=== PATIENT | female | born 1950 | race Caucasian/White ===

== ENCOUNTER 2018-05-28 14:17 | Inpatient (IN) | payer MEDICARE, MEDICAID ==
--- NOTE | 2018-05-28 14:31 | ED Physician Chart ---
ED Chief Complaint/HPI - Patient Information Date Seen:: 05/28/18 Time Seen:: 14:20 Chief Complaint:: Agitation History of Present Illness:: onset x 2 days of hallucinations and agitation; no report of trauma, H/As, neck pain, C/P, SOB, Abd. Pain, SIs, A/N/V/D/C, fever, chills, or urinary s/s Historian:: Patient, EMS Review:: Nurse's Note Reviewed, Old Chart Reviewed, EMS run form Reviewed ED Review of Systems - Review of Systems General/Constitutional: No fever, No chills, No weight loss, No weakness, No diaphoresis, No edema, No loss of appetite Skin: No skin lesions, No rash, No bruising Head: No headache, No light-headedness Eyes: No loss of vision, No pain, No diplopia ENT: No earache, No nasal drainage, No sore throat, No tinnitus Neck: No neck pain, No swelling, No thyromegaly, No stiffness, No mass noted Cardio Vascular: No chest pain, No palpitations, No PND, No orthopnea, No edema Pulmonary: No SOB, No cough, No sputum, No wheezing GI: No nausea, No vomiting, No diarrhea, No pain, No melena, No hematochezia, No constipation, No hematemesis G/U: No dysuria, No frequency, No hematuria, No nacturia Medicaid Analyst: No vaginal discharge, No abnormal vaginal bleed, No contraction Musculoskeletal: No bone or joint pain, No back pain, No muscle pain Endocrine: No polyuria, No polydipsia Psychiatric: Prior psych history, No depression, Anxiety, No suicidal ideation, No homicidal ideation, Auditory hallucination, No visual hallucination Hematopoietic: No bruising, No lymphadenopathy Allergic/Immuno: No urticaria, No angioedema Neurological: No syncope, No focal symptoms, No weakness, No paresthesia, No headache, No seizure, No dizziness, Confusion, No vertigo ED Past Medical History - Past Medical History Obtainable: Yes Past Medical History: HTN, PUD/GERD, Dementia Family History: HTN Social History: Non Smoker, No Alcohol, No Drug Use, Single, Care Facility Surgical History: Pacemaker Psychiatricy History: Schizophrenia, Dementia Medication: Reviewed Family Medical History - Family Member Mother History Unknown: Yes ED Physical Exam - Physical Examination General/Constitutional: Awake, Well-developed, well-nourished, Alert, No distress, GCS 15, Non-toxic appearing, Ambulatory Head: Atraumatic Eyes: Lids, conjuctiva normal, PERRL, EOMI Skin: Nl inspection, No rash, No skin lesions, No ecchymosis, Well hydrated, No lymphadenopathy ENMT: External ears, nose nl, TM canals nl, Nasal exam nl, Lips, teeth, gums nl , Oropharynx nl, Tonsils nl Neck: Nontender, Full ROM w/o pain, No JVD, No nuchal rigidity, No bruit, No mass, No stridor Respiratory: Nl effort/Exclusion, Clear to Auscultation, No Wheeze/Rhonchi/Rales Cardio Vascular: No murmur, gallop, rubs, NL S1 S2, Carotid/Femoral/Distal pulses equal bilaterally Other Cardio Vascular comments:: Irregular Irregular Rhythm GI: No tenderness/rebounding/guarding, No organomegaly, No hernia, Normal BS's, Nondistended, No mass/bruits, No McBurney tenderness : No CVA tenderness Extremities: No tenderness or effusion, Full ROM, normal strength in all extremities, No edema, Normal digits & nails Neuro/Psych: Alert/oriented, DTR's symmetric, Normal sensory exam, Normal motor strength, Judgement/insight normal, Mood normal, Normal gait, No focal deficits Other Neuro/Psych comments:: + Psychomotor Agitation; no SIs; Mood/Affect: Labile Misc: Normal back, No paraspinal tenderness ED Labs/Radiology/EKG Results - Lab Results Comments:: Reviewed - EKG Interpretations EKG Time:: 14:24 Rate & Rhythm: 80; Atrial Fibrillation Comments:: non-specific st-t changes ED Septic Shock - . Is Septic Shock (SBP<90, OR Lactate>4 mmol\L) present?: No ED Reassessment (Disposition) - Reassessment Reassessment Condition:: Improved - Diagnosis Diagnosis:: Atrial Fibrillation; Schizophrenia; Medical Clearance; Agitation; Bipolar Disorder; Hallucinations - Aftercare/Follow up Instructions Aftercare/Follow-Up Instructions:: Counseled pt regarding lab results/diagnosis & need follow up, Counseled pt & family regarding lab results/diagnosis & need follow up - Patient Disposition Discharge/Transfer:: Acute Care w/in this hosp Admitted to:: [facility] Condition at Disposition:: Stable, Improved
[2018-05-28 14:46] LABS: % BASOPHILS 0.5 % (0.0-2.0); % EOSINOPHILS 3.2 % (0.0-5.0); % LYMPHOCYTES 18.9 % (20.0-50.0); % MONOCYTES 7.1 % (2.0-10.0); % NEUTROPHILS 70.3 % (40.0-80.0); EOSINOPHILE ABSOLUTE 0.2 Th/cmm (0.1-0.4); LYMPHOCYTE ABSOLUTE 1.2 Th/cmm (1.5-3.0); MEAN CELL VOLUME 89.2 fl (81-100); MEAN CORPUSCULAR HEMOGLOBIN 29.7 pg (27.0-31.0); MEAN CORPUSCULAR HGB CONC 33.3 pg (28.0-36.0); MEAN PLATELET VOLUME 8.8 fl; MONOCYTE ABSOLUTE 0.4 Th/cmm (0.3-1.0); NEUTROPHILE ABSOLUTE 4.5 Th/cmm (1.8-8.0); PLATELET COUNT 226 Th/cmm (150-400); RED BLOOD COUNT 4.37 Mil/cmm (3.80-5.20); RED CELL DISTRIBUTION WIDTH 14.9 % (11.5-20.0); WHITE BLOOD COUNT 6.3 Th/cmm (4.8-10.8)
[2018-05-28 15:00] LABS: ACETAMINOPHEN < 10.0 ug/mL (10.0-30.0); ALB/GLOB RATIO 0.9 (1.0-1.8); ALBUMIN 3.2 gm/dL (3.7-5.3); ALKALINE PHOSPHATASE 59 U/L (34-104); ANION GAP 8.4 (7.0-16.0); BILIRUBIN,TOTAL 0.5 mg/dL (0.3-1.0); BUN - UREA NITROGEN 18 mg/dL (7-25); CALCIUM SERUM 8.8 mg/dL (8.6-10.3); CARBON DIOXIDE 26.6 mEq/L (21.0-31.0); CHLORIDE 106 mEq/L (98-107); CHOLESTEROL 133 mg/dL (<200); CREATININE - SERUM 0.7 mg/dL (0.6-1.2); GFR AFRICAN-AMERICAN > 60.0 ml/min (>90); GFR NON AFRICAN-AMERICAN > 60.0 ml/min; GLUCOSE 103 mg/dL (70-105); HDL -HIGH DENSITY LIPOPROTEIN 39 mg/dL (23-92); SALICYLATES (ASPIRIN) < 25.0 mg/L (30.0-100.0); SGOT 12 U/L (13-39); SGPT/ALT 9 U/L (7-52); SODIUM SERUM 137 mEq/L (136-145); TOTAL PROTEIN,SERUM 6.6 gm/dL (6.0-8.3); TRIGLYCERIDES 148 mg/dL (<150)
[2018-05-28 16:50] VITALS: BP 146/84
[2018-05-28] MEDS ORDERED: Maalox 30 mL Cup PO PRN (16:50)
[2018-05-28] MEDS ORDERED: Magnesium Hydroxide (MOM) 30 mL UDC PO PRN (16:50)
[2018-05-28 21:03] LABS: A1C % 6.5 % (4.0-6.0)
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
[2018-05-29] MEDS: Multivitamin Tab PO SCH (08:51)
--- NOTE | 2018-05-29 09:02 | History and Physical ---
History of Present Illness - HPI Chief Complaint: Increased in agitation HPI: Patient was send from SNF for evaluation for 2 days of increased in agitation. Vital Signs: Last Vital Signs Temp 97.3 F 05/29/18 06:30 Pulse 63 05/29/18 08:50 Resp 18 05/29/18 06:30 BP 109/65 05/29/18 06:30 Pulse Ox 97 05/29/18 06:30 Past Medical History Cardiovascular: Report: CAD, HTN Pulmonary: Report: No Pertinent Hx ENTERPRISE ENGINEER: Report: Dementia GI: Report: GERD Psych: Report: Psychosis, Schizophrenia Musculoskeletal: Report: Weakness Rheumatologic: Report: No pertinent Hx Infectious Disease: Report: No Pertinent Hx Renal/: Report: No Pertinent Hx Endocrine: Report: No Pertinent Hx Dermatology: Report: Other (Dermatophytosis) - Past Surgical History Past Surgical History: Other (Pacemaker placement) Family Medical History - Family Member Mother History Unknown: Yes Social History Smoke: No Alcohol: None Drugs: None Lives: Snf Domestic Violence: Negative - Medications Home Medications: Home Medication Medication Instructions Recorded Type Amiodarone [Cordarone] 100 mg PO DAILY 05/28/18 History Clonazepam [Klonopin] 1.5 mg PO HS 05/28/18 History Cyclosporine [Restasis] 1 drop EACH EYE BID 05/28/18 History Dabigatran Etexilate Mesylate 150 mg BID 05/28/18 History [Pradaxa] Digoxin [Lanoxin] 0.125 mg PO DAILY 05/28/18 History Docusate Sodium 100 mg PO DAILY 05/28/18 History Multivit with Iron-Minerals 1 tab PO DAILY 05/28/18 History [Compete] Tramadol HCl [Ultram] 50 mg PO BID 05/28/18 History Trazodone HCl 100 mg PO HS 05/28/18 History - Allergies Allergies/Adverse Reactions: Allergies Allergy/AdvReac Type Severity Reaction Status Date / Time lithium Allergy Verified 05/28/18 14:57 Review of Systems - Review of Systems Constitutional: Report: Weakness Eyes: Report: No Significant ENT: Report: No Significant Respiratory: Report: No Significant Cardiovascular: Report: No Significant Gastrointestinal: Report: No Significant Genitourinary: Report: No Significant Musculoskeletal: Report: No Significant Skin: Report: No Significant Neurological: Report: No Significant Physical Exam - Physical Exam HEENT: Report: Ears Nose Throat within normal limits Neck: Report: Within normal limits Cardiovascular Systems: Report: Regular, Rate and Rhythm Respiratory: Report: Breath Sounds are within normal limits Abdomen: Report: Non-tender to palpation Back: Report: Inspection of back is within normal limits. Skin: Report: Other (Skin of lower extremities is dry, toe nails are yellow) Neuro/Psych: Report: Disoriented to name time or place - Lab Results All Lab Results last 24 hours: Laboratory Results - last 24 hr 05/28/18 05/28/18 05/28/18 14:37 14:37 14:37 WBC 6.3 RBC 4.37 Hgb 13.0 Hct 39.0 L MCV 89.2 MCH 29.7 MCHC Differential 33.3 RDW 14.9 Plt Count 226 MPV 8.8 Neutrophils % 70.3 Lymphocytes % 18.9 L Monocytes % 7.1 Eosinophils % 3.2 Basophils % 0.5 Sodium 137 Potassium 4.0 Chloride 106 Carbon Dioxide 26.6 Anion Gap 8.4 BUN 18 Creatinine 0.7 Est GFR ( Amer) > 60.0 Est GFR (Non-Af Amer) > 60.0 BUN/Creatinine Ratio 25.7 Glucose 103 Hemoglobin A1c % 6.5 H Calcium 8.8 Total Bilirubin 0.5 AST 12 L ALT 9 Alkaline Phosphatase 59 Troponin I Total Protein 6.6 Albumin 3.2 L Globulin 3.4 Albumin/Globulin Ratio 0.9 L Triglycerides 148 Cholesterol 133 LDL Cholesterol Direct 76 HDL Cholesterol 39 TSH Salicylates < 25.0 L Acetaminophen < 10.0 L Ethyl Alcohol < 10 05/28/18 05/28/18 14:37 14:37 WBC RBC Hgb Hct MCV MCH MCHC Differential RDW Plt Count MPV Neutrophils % Lymphocytes % Monocytes % Eosinophils % Basophils % Sodium Potassium Chloride Carbon Dioxide Anion Gap BUN Creatinine Est GFR ( Amer) Est GFR (Non-Af Amer) BUN/Creatinine Ratio Glucose Hemoglobin A1c % Calcium Total Bilirubin AST ALT Alkaline Phosphatase Troponin I 0.01 Total Protein Albumin Globulin Albumin/Globulin Ratio Triglycerides Cholesterol LDL Cholesterol Direct HDL Cholesterol TSH 3.05 Salicylates Acetaminophen Ethyl Alcohol - Assessment Assessment: Patient is awake, alert, confused, not oriented. Dx: Increased in agitation, Schizophrenia, Dementia, HTN, A-Fib, Pacemaker in placement. - Plan Plan: Patient is follow by Psychiatry, continue with SNF meds. Will continue to monitor.
--- NOTE | 2018-05-29 11:31 | Progress Notes ---
DATE: 05/29/2018 SUBJECTIVE: Staff was spoken to. The patient is interviewed. Mood is noted to be irritable. Affect is constricted. Insight and judgment are noted to be still impaired. Impulse control is noted to poor. Coping skills are also noted to be very poor. The patient has been getting easily frustrated. The patient is still responding to internal stimuli. The patient is currently on Seroquel 12.5 mg at bedtime and has been able to tolerate the medications. No side effects to the medications are noted. ASSESSMENT: The patient is still irritable, angry and impulsive. PLAN: To continue the patient with supportive therapy and followup. JOB# [id number]
[2018-05-30] MEDS: Multivitamin Tab PO SCH (08:42)
--- NOTE | 2018-05-30 09:10 | General Progress Note ---
Subjective - Review of Systems Service Date: 05/30/18 Subjective: Patient is confused Objective - Results Result Diagrams: 05/28/18 14:37 05/28/18 14:37 Recent Labs: Laboratory Last Values WBC 6.3 Th/cmm (4.8-10.8) 05/28/18 14:37 RBC 4.37 Mil/cmm (3.80-5.20) 05/28/18 14:37 Hgb 13.0 gm/dL (12-16) 05/28/18 14:37 Hct 39.0 % (41.0-60) L 05/28/18 14:37 MCV 89.2 fl (81-100) 05/28/18 14:37 MCH 29.7 pg (27.0-31.0) 05/28/18 14:37 MCHC Differential 33.3 pg (28.0-36.0) 05/28/18 14:37 RDW 14.9 % (11.5-20.0) 05/28/18 14:37 Plt Count 226 Th/cmm (150-400) 05/28/18 14:37 MPV 8.8 fl 05/28/18 14:37 Neutrophils % 70.3 % (40.0-80.0) 05/28/18 14:37 Lymphocytes % 18.9 % (20.0-50.0) L 05/28/18 14:37 Monocytes % 7.1 % (2.0-10.0) 05/28/18 14:37 Eosinophils % 3.2 % (0.0-5.0) 05/28/18 14:37 Basophils % 0.5 % (0.0-2.0) 05/28/18 14:37 Sodium 137 mEq/L (136-145) 05/28/18 14:37 Potassium 4.0 mEq/L (3.5-5.1) 05/28/18 14:37 Chloride 106 mEq/L (98-107) 05/28/18 14:37 Carbon Dioxide 26.6 mEq/L (21.0-31.0) 05/28/18 14:37 Anion Gap 8.4 (7.0-16.0) 05/28/18 14:37 BUN 18 mg/dL (7-25) 05/28/18 14:37 Creatinine 0.7 mg/dL (0.6-1.2) 05/28/18 14:37 Est GFR ( Amer) > 60.0 ml/min (>90) 05/28/18 14:37 Est GFR (Non-Af Amer) > 60.0 ml/min 05/28/18 14:37 BUN/Creatinine Ratio 25.7 05/28/18 14:37 Glucose 103 mg/dL (70-105) 05/28/18 14:37 Hemoglobin A1c % 6.5 % (4.0-6.0) H 05/28/18 14:37 Calcium 8.8 mg/dL (8.6-10.3) 05/28/18 14:37 Total Bilirubin 0.5 mg/dL (0.3-1.0) 05/28/18 14:37 AST 12 U/L (13-39) L 05/28/18 14:37 ALT 9 U/L (7-52) 05/28/18 14:37 Alkaline Phosphatase 59 U/L (34-104) 05/28/18 14:37 Troponin I 0.01 ng/mL (0.01-0.05) 05/28/18 14:37 Total Protein 6.6 gm/dL (6.0-8.3) 05/28/18 14:37 Albumin 3.2 gm/dL (3.7-5.3) L 05/28/18 14:37 Globulin 3.4 gm/dL 05/28/18 14:37 Albumin/Globulin Ratio 0.9 (1.0-1.8) L 05/28/18 14:37 Triglycerides 148 mg/dL (<150) 05/28/18 14:37 Cholesterol 133 mg/dL (<200) 05/28/18 14:37 LDL Cholesterol Direct 76 mg/dL (75-193) 05/28/18 14:37 HDL Cholesterol 39 mg/dL (23-92) 05/28/18 14:37 TSH 3.05 uIU/ml (0.34-5.60) 05/28/18 14:37 Salicylates < 25.0 mg/L (30.0-100.0) L 05/28/18 14:37 Acetaminophen < 10.0 ug/mL (10.0-30.0) L 05/28/18 14:37 Ethyl Alcohol < 10 mg/dL (0-10) 05/28/18 14:37 RPR NONREACTIVE (NONREACTIVE) 05/28/18 14:37 - Physical Exam Vitals and I&O: Vital Signs Temp 97.1 F 05/30/18 06:33 Pulse 68 05/30/18 08:42 Resp 18 05/30/18 06:33 BP 112/64 05/30/18 06:33 Pulse Ox 95 05/30/18 06:33 Intake & Output 05/29/18 05/30/18 05/30/18 18:59 06:59 18:59 Intake Total 800 120 Balance 800 120 Intake: Oral 800 120 Other: # Voids 4 3 # Bowel Movements 0 Active Medications: Current Medications Acetaminophen (Tylenol) 650 mg PO Q4HR PRN PRN Reason: Mild Pain / Temp above 100 Stop: 07/27/18 16:49 Al Hydrox/Mg Hydrox/Simethicone (Maalox) 30 ml PO Q4HR PRN PRN Reason: GI DISTRESS Stop: 07/27/18 16:49 Clonazepam (Klonopin) 1 mg PO HS HOWARD; Protocol Stop: 07/28/18 20:59 Last Admin: 05/29/18 20:56 Dose: 1 mg Digoxin (Lanoxin) 0.125 mg PO DAILY HOWARD Stop: 07/28/18 08:59 Last Admin: 05/30/18 08:42 Dose: 0.125 mg Lorazepam (Ativan) 0.5 mg PO Q4HR PRN; Protocol PRN Reason: Anxiety Stop: 07/27/18 16:58 Last Admin: 05/29/18 14:37 Dose: 0.5 mg Magnesium Hydroxide (Milk Of Magnesia) 30 ml PO HS PRN PRN Reason: Constipation Multivitamins/Vitamin C (Theragran) 1 tab PO DAILY HOWARD Stop: 07/28/18 08:59 Last Admin: 05/30/18 08:42 Dose: 1 tab Quetiapine Fumarate (Seroquel) 12.5 mg PO HS HOWARD; Protocol Stop: 07/27/18 20:59 Last Admin: 05/29/18 20:56 Dose: 12.5 mg Tramadol HCl (Ultram) 50 mg PO BID HOWARD Stop: 07/28/18 08:59 Last Admin: 05/30/18 08:42 Dose: 50 mg Zolpidem Tartrate (Ambien) 5 mg PO HS PRN PRN Reason: Insomnia Stop: 07/27/18 16:49 General: Alert, Other (Confused) HEENT: Atraumatic Neck: Supple Cardiovascular: Regular rate Lungs: Clear to auscultation Abdomen: Bowel sounds, Soft Extremities: Other (No edema) Neurological: Other (Unstable gait) Skin: Other (Warm and dry) Psych/Mental Status: Other (Confused not oriented) Assessment/Plan - Assessment Assessment: Patient is awake, alert, confused, not oriented. Dx: Increased in agitation, Schizophrenia, Dementia, HTN, A-Fib, Pacemaker in placement. - Plan Plan: Patient is follow by Psychiatry, continue with SNF meds. Will continue to monitor.
--- NOTE | 2018-05-30 21:57 | Progress Notes ---
DATE: 05/30/2018 SUBJECTIVE: Staff was spoken to. The patient is interviewed. Mood is noted to be irritable. Affect is constricted. The patient is extremely anxious. The patient has been having difficult time to cope with the stress. The patient's coping skills are noted to be extremely poor. No side effects to the medications are noted. The patient is mentioning that she is feeling very tired and hence it is decided to decrease the dose on the lorazepam to 0.5 mg at bedtime and follow the patient with supportive therapy. The patient is also on 12.5 mg of the Seroquel. The patient's sleep is noted to be improving. Appetite is noted to be fair, but the patient continues to be agitated, irritable and paranoid. PLAN: To continue the patient with the current medications and followup. [facility]# [id number]
--- NOTE | 2018-05-31 07:48 | General Progress Note ---
Subjective - Review of Systems Service Date: 05/31/18 Subjective: Patient is confused Objective - Results Result Diagrams: 05/28/18 14:37 05/28/18 14:37 Recent Labs: Laboratory Last Values WBC 6.3 Th/cmm (4.8-10.8) 05/28/18 14:37 RBC 4.37 Mil/cmm (3.80-5.20) 05/28/18 14:37 Hgb 13.0 gm/dL (12-16) 05/28/18 14:37 Hct 39.0 % (41.0-60) L 05/28/18 14:37 MCV 89.2 fl (81-100) 05/28/18 14:37 MCH 29.7 pg (27.0-31.0) 05/28/18 14:37 MCHC Differential 33.3 pg (28.0-36.0) 05/28/18 14:37 RDW 14.9 % (11.5-20.0) 05/28/18 14:37 Plt Count 226 Th/cmm (150-400) 05/28/18 14:37 MPV 8.8 fl 05/28/18 14:37 Neutrophils % 70.3 % (40.0-80.0) 05/28/18 14:37 Lymphocytes % 18.9 % (20.0-50.0) L 05/28/18 14:37 Monocytes % 7.1 % (2.0-10.0) 05/28/18 14:37 Eosinophils % 3.2 % (0.0-5.0) 05/28/18 14:37 Basophils % 0.5 % (0.0-2.0) 05/28/18 14:37 Sodium 137 mEq/L (136-145) 05/28/18 14:37 Potassium 4.0 mEq/L (3.5-5.1) 05/28/18 14:37 Chloride 106 mEq/L (98-107) 05/28/18 14:37 Carbon Dioxide 26.6 mEq/L (21.0-31.0) 05/28/18 14:37 Anion Gap 8.4 (7.0-16.0) 05/28/18 14:37 BUN 18 mg/dL (7-25) 05/28/18 14:37 Creatinine 0.7 mg/dL (0.6-1.2) 05/28/18 14:37 Est GFR ( Amer) > 60.0 ml/min (>90) 05/28/18 14:37 Est GFR (Non-Af Amer) > 60.0 ml/min 05/28/18 14:37 BUN/Creatinine Ratio 25.7 05/28/18 14:37 Glucose 103 mg/dL (70-105) 05/28/18 14:37 Hemoglobin A1c % 6.5 % (4.0-6.0) H 05/28/18 14:37 Calcium 8.8 mg/dL (8.6-10.3) 05/28/18 14:37 Total Bilirubin 0.5 mg/dL (0.3-1.0) 05/28/18 14:37 AST 12 U/L (13-39) L 05/28/18 14:37 ALT 9 U/L (7-52) 05/28/18 14:37 Alkaline Phosphatase 59 U/L (34-104) 05/28/18 14:37 Troponin I 0.01 ng/mL (0.01-0.05) 05/28/18 14:37 Total Protein 6.6 gm/dL (6.0-8.3) 05/28/18 14:37 Albumin 3.2 gm/dL (3.7-5.3) L 05/28/18 14:37 Globulin 3.4 gm/dL 05/28/18 14:37 Albumin/Globulin Ratio 0.9 (1.0-1.8) L 05/28/18 14:37 Triglycerides 148 mg/dL (<150) 05/28/18 14:37 Cholesterol 133 mg/dL (<200) 05/28/18 14:37 LDL Cholesterol Direct 76 mg/dL (75-193) 05/28/18 14:37 HDL Cholesterol 39 mg/dL (23-92) 05/28/18 14:37 TSH 3.05 uIU/ml (0.34-5.60) 05/28/18 14:37 Salicylates < 25.0 mg/L (30.0-100.0) L 05/28/18 14:37 Acetaminophen < 10.0 ug/mL (10.0-30.0) L 05/28/18 14:37 Ethyl Alcohol < 10 mg/dL (0-10) 05/28/18 14:37 RPR NONREACTIVE (NONREACTIVE) 05/28/18 14:37 - Physical Exam Vitals and I&O: Vital Signs Temp 97 F 05/31/18 07:21 Pulse 68 05/31/18 07:21 Resp 16 05/31/18 07:21 BP 101/71 05/31/18 07:21 Pulse Ox 94 05/31/18 07:21 Intake & Output 05/30/18 05/31/18 05/31/18 18:59 06:59 18:59 Intake Total 1400 Balance 1400 Intake: Oral 1400 Other: # Voids 4 # Bowel Movements 1 Active Medications: Current Medications Acetaminophen (Tylenol) 650 mg PO Q4HR PRN PRN Reason: Mild Pain / Temp above 100 Stop: 07/27/18 16:49 Al Hydrox/Mg Hydrox/Simethicone (Maalox) 30 ml PO Q4HR PRN PRN Reason: GI DISTRESS Stop: 07/27/18 16:49 Clonazepam (Klonopin) 0.5 mg PO HS HOWARD; Protocol Stop: 07/29/18 20:59 Last Admin: 05/30/18 21:16 Dose: 0.5 mg Digoxin (Lanoxin) 0.125 mg PO DAILY HOWARD Stop: 07/28/18 08:59 Last Admin: 05/30/18 08:42 Dose: 0.125 mg Lorazepam (Ativan) 0.5 mg PO Q4HR PRN; Protocol PRN Reason: Anxiety Stop: 07/27/18 16:58 Last Admin: 05/30/18 23:43 Dose: 0.5 mg Magnesium Hydroxide (Milk Of Magnesia) 30 ml PO HS PRN PRN Reason: Constipation Multivitamins/Vitamin C (Theragran) 1 tab PO DAILY HOWARD Stop: 07/28/18 08:59 Last Admin: 05/30/18 08:42 Dose: 1 tab Quetiapine Fumarate (Seroquel) 12.5 mg PO HS HOWARD; Protocol Stop: 07/27/18 20:59 Last Admin: 05/30/18 21:16 Dose: 12.5 mg Tramadol HCl (Ultram) 50 mg PO BID HOWARD Stop: 07/28/18 08:59 Last Admin: 05/30/18 17:25 Dose: 50 mg Zolpidem Tartrate (Ambien) 5 mg PO HS PRN PRN Reason: Insomnia Stop: 07/27/18 16:49 Last Admin: 05/30/18 21:17 Dose: 5 mg General: Alert, Other (Confused) HEENT: Atraumatic Neck: Supple Cardiovascular: Regular rate Lungs: Clear to auscultation Abdomen: Bowel sounds, Soft Extremities: Other (No edema) Neurological: Other (Unstable gait) Skin: Other (Warm and dry) Psych/Mental Status: Other (Confused not oriented) Assessment/Plan - Assessment Assessment: Patient is awake, alert, confused, not oriented. Dx: Increased in agitation, Schizophrenia, Dementia, HTN, A-Fib, Pacemaker in placement. - Plan Plan: Patient is follow by Psychiatry, continue with SNF meds. Will continue to monitor.
[2018-05-31] MEDS: Multivitamin Tab PO SCH (08:53)
--- NOTE | 2018-05-31 13:24 | Progress Notes ---
DATE: 05/31/2018 SUBJECTIVE: Staff was spoken to. The patient is interviewed. Mood is noted to be irritable. Affect is constricted. The patient's insight and judgment are noted to be impaired. The patient has been noted to be very sedated. The patient has been given a dose of Ativan, Ambien, and the Seroquel last night and the patient is having difficult time to wake up and hence it is decided to discontinue the Klonopin and then make the lorazepam only 0.5 mg twice a day and discontinue the Ambien and follow the patient with the supportive therapy. The patient's vital signs; however, are noted to be stable. JOB# [id number]
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
[2018-06-01] MEDS: Multivitamin Tab PO SCH (08:37)
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
[2018-06-02] MEDS: Multivitamin Tab PO SCH (08:13)
--- NOTE | 2018-06-02 20:48 | Progress Notes ---
DATE: 06/02/2018 SUBJECTIVE: Staff was spoken to. The patient is interviewed. Mood is noted to be irritable. Affect is constricted. The patient continues to be very paranoid. The patient is screaming and yelling and has been accusing the people and been trying to hurt her and harm her. The patient has no insight into her illness. The patient is currently on quetiapine 25 mg at bedtime and then we have started the valproic acid 125 mg for her mood swings. The patient is going to be followed up with the supportive therapy, encouraged the patient and has been encouraged to verbalize the concerns rather than to act out. JOB# [id number]
--- NOTE | 2018-06-03 09:02 | General Progress Note ---
Subjective - Review of Systems Service Date: 06/03/18 Subjective: Patient is confused Objective - Results Result Diagrams: 05/28/18 14:37 05/28/18 14:37 Recent Labs: Laboratory Last Values WBC 6.3 Th/cmm (4.8-10.8) 05/28/18 14:37 RBC 4.37 Mil/cmm (3.80-5.20) 05/28/18 14:37 Hgb 13.0 gm/dL (12-16) 05/28/18 14:37 Hct 39.0 % (41.0-60) L 05/28/18 14:37 MCV 89.2 fl (81-100) 05/28/18 14:37 MCH 29.7 pg (27.0-31.0) 05/28/18 14:37 MCHC Differential 33.3 pg (28.0-36.0) 05/28/18 14:37 RDW 14.9 % (11.5-20.0) 05/28/18 14:37 Plt Count 226 Th/cmm (150-400) 05/28/18 14:37 MPV 8.8 fl 05/28/18 14:37 Neutrophils % 70.3 % (40.0-80.0) 05/28/18 14:37 Lymphocytes % 18.9 % (20.0-50.0) L 05/28/18 14:37 Monocytes % 7.1 % (2.0-10.0) 05/28/18 14:37 Eosinophils % 3.2 % (0.0-5.0) 05/28/18 14:37 Basophils % 0.5 % (0.0-2.0) 05/28/18 14:37 Sodium 137 mEq/L (136-145) 05/28/18 14:37 Potassium 4.0 mEq/L (3.5-5.1) 05/28/18 14:37 Chloride 106 mEq/L (98-107) 05/28/18 14:37 Carbon Dioxide 26.6 mEq/L (21.0-31.0) 05/28/18 14:37 Anion Gap 8.4 (7.0-16.0) 05/28/18 14:37 BUN 18 mg/dL (7-25) 05/28/18 14:37 Creatinine 0.7 mg/dL (0.6-1.2) 05/28/18 14:37 Est GFR ( Amer) > 60.0 ml/min (>90) 05/28/18 14:37 Est GFR (Non-Af Amer) > 60.0 ml/min 05/28/18 14:37 BUN/Creatinine Ratio 25.7 05/28/18 14:37 Glucose 103 mg/dL (70-105) 05/28/18 14:37 Hemoglobin A1c % 6.5 % (4.0-6.0) H 05/28/18 14:37 Calcium 8.8 mg/dL (8.6-10.3) 05/28/18 14:37 Total Bilirubin 0.5 mg/dL (0.3-1.0) 05/28/18 14:37 AST 12 U/L (13-39) L 05/28/18 14:37 ALT 9 U/L (7-52) 05/28/18 14:37 Alkaline Phosphatase 59 U/L (34-104) 05/28/18 14:37 Troponin I 0.01 ng/mL (0.01-0.05) 05/28/18 14:37 Total Protein 6.6 gm/dL (6.0-8.3) 05/28/18 14:37 Albumin 3.2 gm/dL (3.7-5.3) L 05/28/18 14:37 Globulin 3.4 gm/dL 05/28/18 14:37 Albumin/Globulin Ratio 0.9 (1.0-1.8) L 05/28/18 14:37 Triglycerides 148 mg/dL (<150) 05/28/18 14:37 Cholesterol 133 mg/dL (<200) 05/28/18 14:37 LDL Cholesterol Direct 76 mg/dL (75-193) 05/28/18 14:37 HDL Cholesterol 39 mg/dL (23-92) 05/28/18 14:37 TSH 3.05 uIU/ml (0.34-5.60) 05/28/18 14:37 Salicylates < 25.0 mg/L (30.0-100.0) L 05/28/18 14:37 Acetaminophen < 10.0 ug/mL (10.0-30.0) L 08/29/18 14:37 Ethyl Alcohol < 10 mg/dL (0-10) 05/28/18 14:37 RPR NONREACTIVE (NONREACTIVE) 05/28/18 14:37 - Physical Exam Vitals and I&O: Vital Signs Temp 99.0 F 06/02/18 20:42 Pulse 101 06/02/18 20:42 Resp 20 06/02/18 20:42 BP 143/93 06/02/18 20:42 Pulse Ox 94 06/02/18 20:42 Intake & Output 06/02/18 06/03/18 06/03/18 18:59 06:59 18:59 Intake Total 2200 240 Balance 2200 240 Intake: Oral 2200 240 Other: # Voids 4 2 # Bowel Movements 1 Active Medications: Current Medications Acetaminophen (Tylenol) 650 mg PO Q4HR PRN PRN Reason: Mild Pain / Temp above 100 Stop: 07/27/18 16:49 Last Admin: 06/01/18 08:37 Dose: 650 mg Al Hydrox/Mg Hydrox/Simethicone (Maalox) 30 ml PO Q4HR PRN PRN Reason: GI DISTRESS Stop: 07/27/18 16:49 Digoxin (Lanoxin) 0.125 mg PO DAILY HOWARD Stop: 07/28/18 08:59 Last Admin: 06/02/18 08:12 Dose: 0.125 mg Lorazepam (Ativan) 0.5 mg PO BID PRN; Protocol PRN Reason: Anxiety Stop: 07/27/18 16:58 Last Admin: 06/01/18 21:07 Dose: 0.5 mg Magnesium Hydroxide (Milk Of Magnesia) 30 ml PO HS PRN PRN Reason: Constipation Multivitamins/Vitamin C (Theragran) 1 tab PO DAILY HOWARD Stop: 07/28/18 08:59 Last Admin: 06/02/18 08:13 Dose: 1 tab Quetiapine Fumarate (Seroquel) 25 mg PO HS HOWARD; Protocol Stop: 07/31/18 20:59 Last Admin: 06/02/18 21:19 Dose: 25 mg Tramadol HCl (Ultram) 50 mg PO BID PRN PRN Reason: Pain (Moderate) Stop: 07/28/18 08:59 Valproate Sodium (Depakene) 125 mg PO BID HOWARD; Protocol Stop: 07/31/18 16:59 Last Admin: 06/02/18 16:10 Dose: 125 mg General: Alert, Other (Confused) HEENT: Atraumatic Neck: Supple Cardiovascular: Regular rate Lungs: Clear to auscultation Abdomen: Bowel sounds, Soft Extremities: Other (No edema) Neurological: Other (Unstable gait) Skin: Other (Warm and dry) Psych/Mental Status: Other (Confused not oriented) Assessment/Plan - Assessment Assessment: Patient is awake, alert, confused, not oriented. Dx: Increased in agitation, Schizophrenia, Dementia, HTN, A-Fib, Pacemaker in placement. - Plan Plan: Patient is follow by Psychiatry, continue with SNF meds. Will continue to monitor. Nutritional Asmnt/Malnutr-PDOC - Dietary Evaluation Malnutrition Findings (Please click <Entered> for more info): Nutritional Asmnt/Malnutrition Start: 05/31/18 11: 15 Text: Status: Complete Freq: Protocol: Document 05/31/18 11:15 CHARI (Rec: 05/31/18 11:20 CHARI MAYS- [email or web address]) Nutritional Asmnt/Malnutrition Patient General Information Diagnosis psychosis Pertinent Medical Hx/Surgical Hx pacemaker, CAD, HTN, GERD, psychosis, schizophrenia Subjective Information Pt watching tv at time of visit, stated "yes" to how is your appeitite? Current Diet Order/ Nutrition Support pureed regular Pertinent Medications maalox, MOM, theragran Pertinent Labs 05/28: Na 137, K 4.0, Cl 106, CO2 26.6, BUN 18, Cr 0.7, Ca 8 .8, glucose 103 Nutritional Hx/Data Height 1.55 m Height (Calculated Centimeters) 154.9 Current Weight (lbs) 59.421 kg Weight (Calculated Kilograms) 59.4 Weight (Calculated Grams) 47170.6 Body Mass Index (BMI) 24.7 Weight Status Approriate GI Symptoms GI Symptoms None Last BM 05/30 Difficult in: Chewing Food Allergies No Cultural/Ethnic/Scientology Belief unknown Usual diet at home pureed Skin Integrity/Comment: yinka score 16 Current %PO Good (75-100%) Estimated Nutritional Goals BEE in Kcals: Using Current wt Calories/Kcals/Kg 25-30kcals/kg Kcals Calculated 1485-1782kcals/day Protein: Using Current wt Protein g/kg/kg Protein Calculated 59g/day Fluid: ml 1485-1782ml/day (1ml/kcal) Nutritional Problem 1. Problem Problem No nutrition diagnosis at this time Intervention/Recommendation Comments Recommend continuing pureed diet Expected Outcomes/Goals Expected Outcomes/Goals PO intake >75% of meals
[2018-06-03] MEDS: Multivitamin Tab PO SCH (10:13)
--- NOTE | 2018-06-04 02:50 | Progress Notes ---
DATE: 06/03/2018 SUBJECTIVE: Staff was spoken to. The patient is interviewed. Mood is noted to be irritable. Affect is constricted. Coping skills are noted to be still poor. Insight and judgment are noted to be very much impaired. The patient is screaming and yelling at this time. No side effects to the medications are noted. ASSESSMENT: The patient is still psychotic and impulsive and is not ready to be discharged to a lower level of care in view of her acute psychosis. JOB# [id number]
--- NOTE | 2018-06-04 08:47 | General Progress Note ---
Subjective - Review of Systems Service Date: 06/04/18 Subjective: Patient is confused Objective - Results Result Diagrams: 05/28/18 14:37 05/28/18 14:37 Recent Labs: Laboratory Last Values WBC 6.3 Th/cmm (4.8-10.8) 05/28/18 14:37 RBC 4.37 Mil/cmm (3.80-5.20) 05/28/18 14:37 Hgb 13.0 gm/dL (12-16) 05/28/18 14:37 Hct 39.0 % (41.0-60) L 05/28/18 14:37 MCV 89.2 fl (81-100) 05/28/18 14:37 MCH 29.7 pg (27.0-31.0) 05/28/18 14:37 MCHC Differential 33.3 pg (28.0-36.0) 05/28/18 14:37 RDW 14.9 % (11.5-20.0) 05/28/18 14:37 Plt Count 226 Th/cmm (150-400) 05/28/18 14:37 MPV 8.8 fl 05/28/18 14:37 Neutrophils % 70.3 % (40.0-80.0) 05/28/18 14:37 Lymphocytes % 18.9 % (20.0-50.0) L 05/28/18 14:37 Monocytes % 7.1 % (2.0-10.0) 05/28/18 14:37 Eosinophils % 3.2 % (0.0-5.0) 05/28/18 14:37 Basophils % 0.5 % (0.0-2.0) 05/28/18 14:37 Sodium 137 mEq/L (136-145) 05/28/18 14:37 Potassium 4.0 mEq/L (3.5-5.1) 05/28/18 14:37 Chloride 106 mEq/L (98-107) 05/28/18 14:37 Carbon Dioxide 26.6 mEq/L (21.0-31.0) 05/28/18 14:37 Anion Gap 8.4 (7.0-16.0) 05/28/18 14:37 BUN 18 mg/dL (7-25) 05/28/18 14:37 Creatinine 0.7 mg/dL (0.6-1.2) 05/28/18 14:37 Est GFR ( Amer) > 60.0 ml/min (>90) 05/28/18 14:37 Est GFR (Non-Af Amer) > 60.0 ml/min 05/28/18 14:37 BUN/Creatinine Ratio 25.7 05/28/18 14:37 Glucose 103 mg/dL (70-105) 05/28/18 14:37 Hemoglobin A1c % 6.5 % (4.0-6.0) H 05/28/18 14:37 Calcium 8.8 mg/dL (8.6-10.3) 05/28/18 14:37 Total Bilirubin 0.5 mg/dL (0.3-1.0) 05/28/18 14:37 AST 12 U/L (13-39) L 05/28/18 14:37 ALT 9 U/L (7-52) 05/28/18 14:37 Alkaline Phosphatase 59 U/L (34-104) 05/28/18 14:37 Troponin I 0.01 ng/mL (0.01-0.05) 05/28/18 14:37 Total Protein 6.6 gm/dL (6.0-8.3) 05/28/18 14:37 Albumin 3.2 gm/dL (3.7-5.3) L 05/28/18 14:37 Globulin 3.4 gm/dL 05/28/18 14:37 Albumin/Globulin Ratio 0.9 (1.0-1.8) L 05/28/18 14:37 Triglycerides 148 mg/dL (<150) 05/28/18 14:37 Cholesterol 133 mg/dL (<200) 05/28/18 14:37 LDL Cholesterol Direct 76 mg/dL (75-193) 05/28/18 14:37 HDL Cholesterol 39 mg/dL (23-92) 05/28/18 14:37 TSH 3.05 uIU/ml (0.34-5.60) 05/28/18 14:37 Salicylates < 25.0 mg/L (30.0-100.0) L 05/28/18 14:37 Acetaminophen < 10.0 ug/mL (10.0-30.0) L 08/29/18 14:37 Ethyl Alcohol < 10 mg/dL (0-10) 05/28/18 14:37 RPR NONREACTIVE (NONREACTIVE) 05/28/18 14:37 - Physical Exam Vitals and I&O: Vital Signs Temp 98 F 06/03/18 20:00 Pulse 89 06/03/18 20:00 Resp 19 06/03/18 20:00 BP 113/55 06/03/18 20:00 Pulse Ox 97 06/03/18 20:00 Intake & Output 06/03/18 06/04/18 06/04/18 18:59 06:59 18:59 Intake Total 800 120 Balance 800 120 Intake: Oral 800 120 Other: # Voids 3 3 # Bowel Movements 1 Active Medications: Current Medications Acetaminophen (Tylenol) 650 mg PO Q4HR PRN PRN Reason: Mild Pain / Temp above 100 Stop: 07/27/18 16:49 Last Admin: 06/01/18 08:37 Dose: 650 mg Al Hydrox/Mg Hydrox/Simethicone (Maalox) 30 ml PO Q4HR PRN PRN Reason: GI DISTRESS Stop: 07/27/18 16:49 Digoxin (Lanoxin) 0.125 mg PO DAILY HOWARD Stop: 07/28/18 08:59 Last Admin: 06/03/18 10:13 Dose: 0.125 mg Lorazepam (Ativan) 0.5 mg PO BID PRN; Protocol PRN Reason: Anxiety Stop: 07/27/18 16:58 Last Admin: 06/03/18 16:22 Dose: 0.5 mg Magnesium Hydroxide (Milk Of Magnesia) 30 ml PO HS PRN PRN Reason: Constipation Multivitamins/Vitamin C (Theragran) 1 tab PO DAILY HOWARD Stop: 07/28/18 08:59 Last Admin: 06/03/18 10:13 Dose: 1 tab Quetiapine Fumarate (Seroquel) 25 mg PO HS HOWARD; Protocol Stop: 07/31/18 20:59 Last Admin: 06/03/18 20:14 Dose: 25 mg Tramadol HCl (Ultram) 50 mg PO BID PRN PRN Reason: Pain (Moderate) Stop: 07/28/18 08:59 Valproate Sodium (Depakene) 125 mg PO BID HOWARD; Protocol Stop: 07/31/18 16:59 Last Admin: 06/03/18 16:21 Dose: 125 mg General: Alert, Other (Confused) HEENT: Atraumatic, Other (There are some ulcer in tongue. ) Neck: Supple Cardiovascular: Regular rate Lungs: Clear to auscultation Abdomen: Bowel sounds, Soft Extremities: Other (No edema) Neurological: Other (Unstable gait) Skin: Other (Warm and dry) Psych/Mental Status: Other (Confused not oriented) Assessment/Plan - Assessment Assessment: Patient is awake, alert, confused, not oriented. Patient has some oral ulcer, consult with ENT for possible biopsy will be requested. Dx: Increased in agitation, Schizophrenia, Dementia, HTN, A-Fib, Pacemaker in placement, mouth ulcers. - Plan Plan: Patient is follow by Psychiatry, continue with SNF meds. Will continue to monitor. Nutritional Asmnt/Malnutr-PDOC - Dietary Evaluation Malnutrition Findings (Please click <Entered> for more info): Nutritional Asmnt/Malnutrition Start: 05/31/18 11: 15 Text: Status: Complete Freq: Protocol: Document 05/31/18 11:15 CHARI (Rec: 05/31/18 11:20 CHARI MASY- FNS1) Nutritional Asmnt/Malnutrition Patient General Information Diagnosis psychosis Pertinent Medical Hx/Surgical Hx pacemaker, CAD, HTN, GERD, psychosis, schizophrenia Subjective Information Pt watching tv at time of visit, stated "yes" to how is your appeitite? Current Diet Order/ Nutrition Support pureed regular Pertinent Medications maalox, MOM, theragran Pertinent Labs 05/28: Na 137, K 4.0, Cl 106, CO2 26.6, BUN 18, Cr 0.7, Ca 8 .8, glucose 103 Nutritional Hx/Data Height 1.55 m Height (Calculated Centimeters) 154.9 Current Weight (lbs) 59.421 kg Weight (Calculated Kilograms) 59.4 Weight (Calculated Grams) 21164.6 Body Mass Index (BMI) 24.7 Weight Status Approriate GI Symptoms GI Symptoms None Last BM 05/30 Difficult in: Chewing Food Allergies No Cultural/Ethnic/Church Belief unknown Usual diet at home pureed Skin Integrity/Comment: yinka score 16 Current %PO Good (75-100%) Estimated Nutritional Goals BEE in Kcals: Using Current wt Calories/Kcals/Kg 25-30kcals/kg Kcals Calculated 1485-1782kcals/day Protein: Using Current wt Protein g/kg/kg Protein Calculated 59g/day Fluid: ml 1485-1782ml/day (1ml/kcal) Nutritional Problem 1. Problem Problem No nutrition diagnosis at this time Intervention/Recommendation Comments Recommend continuing pureed diet Expected Outcomes/Goals Expected Outcomes/Goals PO intake >75% of meals
[2018-06-04] MEDS: Multivitamin Tab PO SCH (09:30)
--- NOTE | 2018-06-05 02:43 | Progress Notes ---
DATE: 06/04/2018 SUBJECTIVE: Staff was spoken to. The patient is interviewed. Mood is noted to be irritable. Affect is constricted. The patient continues to be irritable and angry. As long as she is left alone, she is not creating a problem, but wants someone is going to be approaching her. She has been getting very paranoid. Coping skills at this time are noted to be very poor. Insight and judgment are also noted to be very much impaired. The patient has a primary care physician has been spoken to and the patient is reported to have work up for the EMG and the patient possibly is going to be psychiatrically stabilized and is going to be discharged in a day or so for her to be followed up on an outpatient basis and Dr. Mccloud has been spoken to with regards to the condition of the patient's tongue. JOB# [id number]
--- NOTE | 2018-06-05 09:00 | General Progress Note ---
Subjective - Review of Systems Service Date: 06/05/18 Subjective: Patient is confused . Objective - Results Result Diagrams: 05/28/18 14:37 05/28/18 14:37 Recent Labs: Laboratory Last Values WBC 6.3 Th/cmm (4.8-10.8) 05/28/18 14:37 RBC 4.37 Mil/cmm (3.80-5.20) 05/28/18 14:37 Hgb 13.0 gm/dL (12-16) 05/28/18 14:37 Hct 39.0 % (41.0-60) L 05/28/18 14:37 MCV 89.2 fl (81-100) 05/28/18 14:37 MCH 29.7 pg (27.0-31.0) 05/28/18 14:37 MCHC Differential 33.3 pg (28.0-36.0) 05/28/18 14:37 RDW 14.9 % (11.5-20.0) 05/28/18 14:37 Plt Count 226 Th/cmm (150-400) 05/28/18 14:37 MPV 8.8 fl 05/28/18 14:37 Neutrophils % 70.3 % (40.0-80.0) 05/28/18 14:37 Lymphocytes % 18.9 % (20.0-50.0) L 05/28/18 14:37 Monocytes % 7.1 % (2.0-10.0) 05/28/18 14:37 Eosinophils % 3.2 % (0.0-5.0) 05/28/18 14:37 Basophils % 0.5 % (0.0-2.0) 05/28/18 14:37 Sodium 137 mEq/L (136-145) 05/28/18 14:37 Potassium 4.0 mEq/L (3.5-5.1) 05/28/18 14:37 Chloride 106 mEq/L (98-107) 05/28/18 14:37 Carbon Dioxide 26.6 mEq/L (21.0-31.0) 05/28/18 14:37 Anion Gap 8.4 (7.0-16.0) 05/28/18 14:37 BUN 18 mg/dL (7-25) 05/28/18 14:37 Creatinine 0.7 mg/dL (0.6-1.2) 05/28/18 14:37 Est GFR ( Amer) > 60.0 ml/min (>90) 05/28/18 14:37 Est GFR (Non-Af Amer) > 60.0 ml/min 05/28/18 14:37 BUN/Creatinine Ratio 25.7 05/28/18 14:37 Glucose 103 mg/dL (70-105) 05/28/18 14:37 Hemoglobin A1c % 6.5 % (4.0-6.0) H 05/28/18 14:37 Calcium 8.8 mg/dL (8.6-10.3) 05/28/18 14:37 Total Bilirubin 0.5 mg/dL (0.3-1.0) 05/28/18 14:37 AST 12 U/L (13-39) L 05/28/18 14:37 ALT 9 U/L (7-52) 05/28/18 14:37 Alkaline Phosphatase 59 U/L (34-104) 05/28/18 14:37 Troponin I 0.01 ng/mL (0.01-0.05) 05/28/18 14:37 Total Protein 6.6 gm/dL (6.0-8.3) 05/28/18 14:37 Albumin 3.2 gm/dL (3.7-5.3) L 05/28/18 14:37 Globulin 3.4 gm/dL 05/28/18 14:37 Albumin/Globulin Ratio 0.9 (1.0-1.8) L 05/28/18 14:37 Triglycerides 148 mg/dL (<150) 05/28/18 14:37 Cholesterol 133 mg/dL (<200) 05/28/18 14:37 LDL Cholesterol Direct 76 mg/dL (75-193) 05/28/18 14:37 HDL Cholesterol 39 mg/dL (23-92) 05/28/18 14:37 TSH 3.05 uIU/ml (0.34-5.60) 05/28/18 14:37 Salicylates < 25.0 mg/L (30.0-100.0) L 05/28/18 14:37 Acetaminophen < 10.0 ug/mL (10.0-30.0) L 05/28/18 14:37 Ethyl Alcohol < 10 mg/dL (0-10) 05/28/18 14:37 RPR NONREACTIVE (NONREACTIVE) 05/28/18 14:37 - Physical Exam Vitals and I&O: Vital Signs Temp 98 F 06/03/18 20:00 Pulse 89 06/03/18 20:00 Resp 20 06/04/18 14:54 BP 113/55 06/03/18 20:00 Pulse Ox 97 06/03/18 20:00 Intake & Output 06/04/18 06/05/18 06/05/18 18:59 06:59 18:59 Other: Stool Characteristics Soft Formed Active Medications: Current Medications Acetaminophen (Tylenol) 650 mg PO Q4HR PRN PRN Reason: Mild Pain / Temp above 100 Stop: 07/27/18 16:49 Last Admin: 06/01/18 08:37 Dose: 650 mg Al Hydrox/Mg Hydrox/Simethicone (Maalox) 30 ml PO Q4HR PRN PRN Reason: GI DISTRESS Stop: 07/27/18 16:49 Digoxin (Lanoxin) 0.125 mg PO DAILY HOWARD Stop: 07/28/18 08:59 Last Admin: 06/04/18 09:30 Dose: 0.125 mg Lidocaine HCl (Xylocaine Viscous 2%) 15 ml PO AC HOWARD Stop: 08/03/18 11:29 Last Admin: 06/05/18 06:59 Dose: 15 ml Lorazepam (Ativan) 0.5 mg PO BID PRN; Protocol PRN Reason: Anxiety Stop: 07/27/18 16:58 Last Admin: 06/04/18 16:46 Dose: 0.5 mg Magnesium Hydroxide (Milk Of Magnesia) 30 ml PO HS PRN PRN Reason: Constipation Multivitamins/Vitamin C (Theragran) 1 tab PO DAILY HOWARD Stop: 07/28/18 08:59 Last Admin: 06/04/18 09:30 Dose: 1 tab Quetiapine Fumarate (Seroquel) 50 mg PO HS HOWARD; Protocol Stop: 08/03/18 20:59 Last Admin: 06/04/18 21:21 Dose: 50 mg Tramadol HCl (Ultram) 50 mg PO BID PRN PRN Reason: Pain (Moderate) Stop: 07/28/18 08:59 Valproate Sodium (Depakene) 125 mg PO BID HOWARD; Protocol Stop: 07/31/18 16:59 Last Admin: 06/04/18 16:46 Dose: 125 mg General: Alert, Other (Confused) HEENT: Atraumatic, Other (There are some ulcer in tongue. ) Neck: Supple Cardiovascular: Regular rate Lungs: Clear to auscultation Abdomen: Bowel sounds, Soft Extremities: Other (No edema) Neurological: Other (Unstable gait) Skin: Other (Warm and dry) Psych/Mental Status: Other (Confused not oriented) Assessment/Plan - Assessment Assessment: Patient is awake, alert, confused, not oriented. Patient has some oral ulcer, ENT will follow patient as outpatient. Dx: Increased in agitation, Schizophrenia, Dementia, HTN, A-Fib, Pacemaker in placement, mouth ulcers. - Plan Plan: Patient is follow by Psychiatry, continue with SNF meds. Patient will be DC tomorrow. Will continue to monitor. Nutritional Asmnt/Malnutr-PDOC - Dietary Evaluation Malnutrition Findings (Please click <Entered> for more info): Nutritional Asmnt/Malnutrition Start: 05/31/18 11: 15 Text: Status: Complete Freq: Protocol: Document 05/31/18 11:15 CHARI (Rec: 05/31/18 11:20 CHARI MAYS- [email or web address]) Nutritional Asmnt/Malnutrition Patient General Information Diagnosis psychosis Pertinent Medical Hx/Surgical Hx pacemaker, CAD, HTN, GERD, psychosis, schizophrenia Subjective Information Pt watching tv at time of visit, stated "yes" to how is your appeitite? Current Diet Order/ Nutrition Support pureed regular Pertinent Medications maalox, MOM, theragran Pertinent Labs 05/28: Na 137, K 4.0, Cl 106, CO2 26.6, BUN 18, Cr 0.7, Ca 8 .8, glucose 103 Nutritional Hx/Data Height 1.55 m Height (Calculated Centimeters) 154.9 Current Weight (lbs) 59.421 kg Weight (Calculated Kilograms) 59.4 Weight (Calculated Grams) 74007.6 Body Mass Index (BMI) 24.7 Weight Status Approriate GI Symptoms GI Symptoms None Last BM 05/30 Difficult in: Chewing Food Allergies No Cultural/Ethnic/Shinto Belief unknown Usual diet at home pureed Skin Integrity/Comment: yinka score 16 Current %PO Good (75-100%) Estimated Nutritional Goals BEE in Kcals: Using Current wt Calories/Kcals/Kg 25-30kcals/kg Kcals Calculated 1485-1782kcals/day Protein: Using Current wt Protein g/kg/kg Protein Calculated 59g/day Fluid: ml 1485-1782ml/day (1ml/kcal) Nutritional Problem 1. Problem Problem No nutrition diagnosis at this time Intervention/Recommendation Comments Recommend continuing pureed diet Expected Outcomes/Goals Expected Outcomes/Goals PO intake >75% of meals
[2018-06-05] MEDS: Multivitamin Tab PO SCH (09:39)
--- NOTE | 2018-06-05 13:37 | Progress Notes ---
DATE: 06/05/2018 SUBJECTIVE: Staff was spoken to. The patient is interviewed. Mood is noted to be anxious. The patient's coping skills are noted to be improving. The patient's screaming and yelling has been coming down. No side effects to the medications are noted. The patient noted to have a lesion on the tongue and Dr. Mccloud is looking for possible ENT referral for the patient. ASSESSMENT: The patient's psychosis is resolving. PLAN: To continue the patient with the supportive therapy and followup. JOB# [id number]
--- NOTE | 2018-06-06 08:31 | General Progress Note ---
Subjective - Review of Systems Service Date: 06/06/18 Subjective: Patient is confused . Objective - Results Result Diagrams: 05/28/18 14:37 05/28/18 14:37 Recent Labs: Laboratory Last Values WBC 6.3 Th/cmm (4.8-10.8) 05/28/18 14:37 RBC 4.37 Mil/cmm (3.80-5.20) 05/28/18 14:37 Hgb 13.0 gm/dL (12-16) 05/28/18 14:37 Hct 39.0 % (41.0-60) L 05/28/18 14:37 MCV 89.2 fl (81-100) 05/28/18 14:37 MCH 29.7 pg (27.0-31.0) 05/28/18 14:37 MCHC Differential 33.3 pg (28.0-36.0) 05/28/18 14:37 RDW 14.9 % (11.5-20.0) 05/28/18 14:37 Plt Count 226 Th/cmm (150-400) 05/28/18 14:37 MPV 8.8 fl 05/28/18 14:37 Neutrophils % 70.3 % (40.0-80.0) 05/28/18 14:37 Lymphocytes % 18.9 % (20.0-50.0) L 05/28/18 14:37 Monocytes % 7.1 % (2.0-10.0) 05/28/18 14:37 Eosinophils % 3.2 % (0.0-5.0) 05/28/18 14:37 Basophils % 0.5 % (0.0-2.0) 05/28/18 14:37 Sodium 137 mEq/L (136-145) 05/28/18 14:37 Potassium 4.0 mEq/L (3.5-5.1) 05/28/18 14:37 Chloride 106 mEq/L (98-107) 05/28/18 14:37 Carbon Dioxide 26.6 mEq/L (21.0-31.0) 05/28/18 14:37 Anion Gap 8.4 (7.0-16.0) 05/28/18 14:37 BUN 18 mg/dL (7-25) 05/28/18 14:37 Creatinine 0.7 mg/dL (0.6-1.2) 05/28/18 14:37 Est GFR ( Amer) > 60.0 ml/min (>90) 05/28/18 14:37 Est GFR (Non-Af Amer) > 60.0 ml/min 05/28/18 14:37 BUN/Creatinine Ratio 25.7 05/28/18 14:37 Glucose 103 mg/dL (70-105) 05/28/18 14:37 Hemoglobin A1c % 6.5 % (4.0-6.0) H 05/28/18 14:37 Calcium 8.8 mg/dL (8.6-10.3) 05/28/18 14:37 Total Bilirubin 0.5 mg/dL (0.3-1.0) 05/28/18 14:37 AST 12 U/L (13-39) L 05/28/18 14:37 ALT 9 U/L (7-52) 05/28/18 14:37 Alkaline Phosphatase 59 U/L (34-104) 05/28/18 14:37 Troponin I 0.01 ng/mL (0.01-0.05) 05/28/18 14:37 Total Protein 6.6 gm/dL (6.0-8.3) 05/28/18 14:37 Albumin 3.2 gm/dL (3.7-5.3) L 05/28/18 14:37 Globulin 3.4 gm/dL 05/28/18 14:37 Albumin/Globulin Ratio 0.9 (1.0-1.8) L 05/28/18 14:37 Triglycerides 148 mg/dL (<150) 05/28/18 14:37 Cholesterol 133 mg/dL (<200) 05/28/18 14:37 LDL Cholesterol Direct 76 mg/dL (75-193) 05/28/18 14:37 HDL Cholesterol 39 mg/dL (23-92) 05/28/18 14:37 TSH 3.05 uIU/ml (0.34-5.60) 05/28/18 14:37 Salicylates < 25.0 mg/L (30.0-100.0) L 05/28/18 14:37 Acetaminophen < 10.0 ug/mL (10.0-30.0) L 05/28/18 14:37 Ethyl Alcohol < 10 mg/dL (0-10) 05/28/18 14:37 RPR NONREACTIVE (NONREACTIVE) 05/28/18 14:37 - Physical Exam Vitals and I&O: Vital Signs Temp 98 F 06/06/18 06:59 Pulse 77 06/06/18 06:59 Resp 20 06/06/18 06:59 BP 115/72 06/06/18 06:59 Pulse Ox 97 06/06/18 06:59 Intake & Output 06/05/18 06/06/18 06/06/18 18:59 06:59 18:59 Intake Total 1200 720 Balance 1200 720 Intake: Oral 1200 720 Other: # Voids 1 # Bowel Movements 1 Stool Characteristics Soft Formed Active Medications: Current Medications Acetaminophen (Tylenol) 650 mg PO Q4HR PRN PRN Reason: Mild Pain / Temp above 100 Stop: 07/27/18 16:49 Last Admin: 06/01/18 08:37 Dose: 650 mg Al Hydrox/Mg Hydrox/Simethicone (Maalox) 30 ml PO Q4HR PRN PRN Reason: GI DISTRESS Stop: 07/27/18 16:49 Digoxin (Lanoxin) 0.125 mg PO DAILY HOWARD Stop: 07/28/18 08:59 Last Admin: 06/05/18 09:39 Dose: 0.125 mg Lidocaine HCl (Xylocaine Viscous 2%) 15 ml PO AC HOWARD Stop: 08/03/18 11:29 Last Admin: 06/06/18 07:03 Dose: Not Given Lorazepam (Ativan) 0.5 mg PO BID PRN; Protocol PRN Reason: Anxiety Stop: 07/27/18 16:58 Last Admin: 06/04/18 16:46 Dose: 0.5 mg Magnesium Hydroxide (Milk Of Magnesia) 30 ml PO HS PRN PRN Reason: Constipation Multivitamins/Vitamin C (Theragran) 1 tab PO DAILY HOWARD Stop: 07/28/18 08:59 Last Admin: 06/05/18 09:39 Dose: 1 tab Quetiapine Fumarate (Seroquel) 50 mg PO HS HOWARD; Protocol Stop: 08/03/18 20:59 Last Admin: 06/05/18 21:08 Dose: 50 mg Tramadol HCl (Ultram) 50 mg PO BID PRN PRN Reason: Pain (Moderate) Stop: 07/28/18 08:59 Last Admin: 06/05/18 13:10 Dose: 50 mg Valproate Sodium (Depakene) 125 mg PO BID HOWARD; Protocol Stop: 07/31/18 16:59 Last Admin: 06/05/18 17:07 Dose: Not Given General: Alert, Other (Confused) HEENT: Atraumatic, Other (There are some ulcer in tongue. ) Neck: Supple Cardiovascular: Regular rate Lungs: Clear to auscultation Abdomen: Bowel sounds, Soft Extremities: Other (No edema) Neurological: Other (Unstable gait) Skin: Other (Warm and dry) Psych/Mental Status: Other (Confused not oriented) Assessment/Plan - Assessment Assessment: Patient is awake, alert, confused, not oriented. Patient has some oral ulcer, ENT will follow patient as outpatient. Dx: Increased in agitation, Schizophrenia, Dementia, HTN, A-Fib, Pacemaker in placement, mouth ulcers. - Plan Plan: Patient is follow by Psychiatry, continue with SNF meds. Patient will be DC today. Will continue to monitor. Nutritional Asmnt/Malnutr-PDOC - Dietary Evaluation Malnutrition Findings (Please click <Entered> for more info): Nutritional Asmnt/Malnutrition Start: 05/31/18 11: 15 Text: Status: Complete Freq: Protocol: Document 05/31/18 11:15 CHARI (Rec: 05/31/18 11:20 CHARI MAYS- FNS1) Nutritional Asmnt/Malnutrition Patient General Information Diagnosis psychosis Pertinent Medical Hx/Surgical Hx pacemaker, CAD, HTN, GERD, psychosis, schizophrenia Subjective Information Pt watching tv at time of visit, stated "yes" to how is your appeitite? Current Diet Order/ Nutrition Support pureed regular Pertinent Medications maalox, MOM, theragran Pertinent Labs 05/28: Na 137, K 4.0, Cl 106, CO2 26.6, BUN 18, Cr 0.7, Ca 8 .8, glucose 103 Nutritional Hx/Data Height 1.55 m Height (Calculated Centimeters) 154.9 Current Weight (lbs) 59.421 kg Weight (Calculated Kilograms) 59.4 Weight (Calculated Grams) 44873.6 Body Mass Index (BMI) 24.7 Weight Status Approriate GI Symptoms GI Symptoms None Last BM 05/30 Difficult in: Chewing Food Allergies No Cultural/Ethnic/Anabaptist Belief unknown Usual diet at home pureed Skin Integrity/Comment: yinka score 16 Current %PO Good (75-100%) Estimated Nutritional Goals BEE in Kcals: Using Current wt Calories/Kcals/Kg 25-30kcals/kg Kcals Calculated 1485-1782kcals/day Protein: Using Current wt Protein g/kg/kg Protein Calculated 59g/day Fluid: ml 1485-1782ml/day (1ml/kcal) Nutritional Problem 1. Problem Problem No nutrition diagnosis at this time Intervention/Recommendation Comments Recommend continuing pureed diet Expected Outcomes/Goals Expected Outcomes/Goals PO intake >75% of meals
[2018-06-06] MEDS: Multivitamin Tab PO SCH (09:00)
--- NOTE | 2018-06-06 20:01 | Discharge Summary ---
DATE OF DISCHARGE: 06/06/2018 IDENTIFYING DATA: The patient is a 68-year-old woman, resident of [facility]. Information obtained by directly interviewing the patient as well as reviewing the admission papers and is reliable. JUSTIFICATION OF HOSPITALIZATION: The patient is admitted on a voluntary basis in view of her acute agitation and aggressive behavior. CHIEF COMPLAINT: "They hurt me so bad and they are not feeding me." DIAGNOSIS AT THE TIME OF ADMISSION: AXIS I: Psychotic disorder, not otherwise specified. AXIS II: None. AXIS III: As per Dr. Mccloud. HISTORY OF PRESENT ILLNESS: Please refer to the 05/28/2018 dictation done by me. Physical examination was done by Dr. Mccloud and is noted to be significant for hypertension, atrial fibrillation with a pacemaker in place and then the patient also has a lesion on the tongue that needs to be worked out. HOSPITAL COURSE AND RESPONSE TO TREATMENT: The patient had the WBC that is noted to be 6.3 and the rest of the labs have been reviewed and the patient has been closely monitored in the unit. The patient continues to be very paranoid and impulsive, screaming and yelling and the patient has been placed on the Seroquel, which was gradually increased to 50 mg at bedtime and valproic acid has been given 225 mg twice a day. With these medications, the patient has been observed and was noted to be doing fairly well and the patient was finally discharged with recommendation that the patient is going to be followed up on an outpatient basis. MENTAL STATUS EXAMINATION: At the time of discharge, the patient's mood is noted to be anxious. Affect is appropriate. Not suicidal or homicidal. Insight and judgment are noted to be improving. Impulse control is noted to be fair at the time of the discharge. CONDITION: At the time of discharge is noted to be stable. DIAGNOSES AT THE TIME OF DISCHARGE: AXIS I: Psychotic disorder, not otherwise specified. AXIS II: None. AXIS III: Hypertension, atrial fibrillation and lesions on the tongue. AFTERCARE PLAN: The patient is discharged to a senior living facility for further followup. JOB# [id number]
== END 2018-06-06 13:00 | DRG 885 ==
LOC: ER 14:17 → GERO 16:05
PROVIDERS: ADMIT Psychiatry & Neurology Psychiatry; ATTEND Psychiatry & Neurology Psychiatry
DX: F23 Brief psychotic disorder (principal); I10 Essential (primary) hypertension; I48.91 Unspecified atrial fibrillation; Z95.0 Presence of cardiac pacemaker; F03.90 Unspecified dementia, unspecified severity, without behavioral disturbance, psychotic disturbance, mood disturbance, and anxiety; K21.9 Gastro-esophageal reflux disease without esophagitis; F31.9 Bipolar disorder, unspecified; K12.1 Other forms of stomatitis; I25.10 Atherosclerotic heart disease of native coronary artery without angina pectoris; Z79.899 Other long term (current) drug therapy; Z88.8 Allergy status to other drugs, medicaments and biological substances; Z82.49 Family history of ischemic heart disease and other diseases of the circulatory system
CPT/HCPCS: 36415-UA; 80053-TC; 80061-TC; 80320-TC; 80329-TC; 83036-90; 84443-TC; 84484-TC; 85025-TC; 86592-TC; 93005; Z7610